=== PATIENT | male | born 1960 | race Caucasian/White ===

== ENCOUNTER → 2016-08-25 | Outpatient (CLI) | payer OTHER ==
[~2016-08-25] MED LIST: ALBUTEROL17 GM INH; CHANTIX1 MG PO; CLARITIN10 M4 PO; FLOMAX0.4 M1 PO; FLOVENT HFA12 G1 INH; LEDIPASVIR PO; MONTELUKAST SOD10 MG PO; SOFOSBUVIR PO; STIOLTO RESPIMAT4 GM INH; TESSALON PERLE100 M1 PO; VITAMIN D-32000 UNI2 PO
[2016-08-25 10:10] LABS: HEMATOCRIT 46.2 % (38.0-50.0); HEMOGLOBIN 15.4 gm/dL (13.0-16.0); MEAN CELL VOLUME 83.7 FL (83-96); MEAN CORPUSCULAR HEMOGLOBIN 27.9 PG (28-34); MEAN CORPUSCULAR HGB CONC 33.3 g/dL (30-36); MEAN PLATELET VOLUME 9.5 FL (6.5-11.5); RED BLOOD COUNT 5.52 X10e (3.90-5.60); RED CELL DISTRIBUTION WIDTH 14.2 % (11.0-15.5)
[2016-08-25 11:10] LABS: ALBUMIN SERUM 3.8 g/dL (3.5-5.0); BILIRUBIN,TOTAL 0.8 mg/dL (0.2-2.0); BUN/CREATININE RATIO 33.33; CREATININE SERUM 0.9 mg/dL (0.6-1.4); GLOM FILT RATE Estimated 95.8 mL/min (>60); POTASSIUM 4.6 mmol/L (3.5-5.1); PROTEIN TOTAL SERUM 6.6 g/dL (6.0-8.3)
== END | disposition home or self-care (01) ==
LOC: CLAB 09:38
PROVIDERS: Nurse Practitioner Family
DX: B19.20 Unspecified viral hepatitis C without hepatic coma (principal)
CPT/HCPCS: 36415; 80053; 85027; 87522

== ENCOUNTER → 2016-08-29 | Day surgery (SDC) | payer OTHER ==
--- NOTE | ~2016-08-29 | OR ---
Unit #: [id number] #: [id number] Patient: DESTINEY MORALES [id number] [address] [place], [place] [address] [id number] MR#: [id number] NAME: DESTINEY MORALES ROOM: Date of Procedure: 08/29/2016 Admission Date: 08/29/2016 Surgeon: Lazaro Brownlee M.D. : 1960 Attending Physician: Lazaro Brownlee M.D. OPERATIVE REPORT PROCEDURE PERFORMED Colonoscopy with snare polypectomy. INDICATIONS FOR PROCEDURE Average risk for colorectal cancer. MEDICATIONS Monitored anesthesia. POSTOPERATIVE FINDINGS 1. Multiple polyps, 2 in transverse colon, 10 in sigmoid colon. They were all 4 to 6 mm small, was snared and sent for histopathology. 2. Prep was good. PLAN Repeat colonoscopy in 3 years. Follow up on the pathology report. DESCRIPTION OF PROCEDURE The patient was explained of the procedure, risks, and benefits along with risks and benefits of anesthesia. He was brought to the endoscopy room. Propofol anesthesia was given. Rectal exam was done, which was normal. Colonoscope was lubricated, passed up the rectum, advanced under direct vision all the way to cecum. Cecum was identified by ileocecal valve and appendiceal orifice. Multiple polyps were seen as described. I retroflexed in the rectum, small hemorrhoids seen. Scope was gently pulled out. He tolerated it well. Dictated by... Opal Segura/raul TD: 08/30/2016 03:23 JOB #: [id number] CC: Mahad Reid Aprn Unit #: [id number] #: [id number] Patient: DESTINEY MORALES OPERATIVE REPORT Page 1 of 1 X Lazaro Brownlee MD X PROCEDURE OPERATIVE NOTE
== END | disposition home or self-care (01) ==
LOC: COPS 09:39
DX: Z12.11 Encounter for screening for malignant neoplasm of colon (principal); D12.3 Benign neoplasm of transverse colon; D12.5 Benign neoplasm of sigmoid colon; K64.9 Unspecified hemorrhoids; J44.9 Chronic obstructive pulmonary disease, unspecified; F17.210 Nicotine dependence, cigarettes, uncomplicated; Z87.442 Personal history of urinary calculi; Z79.899 Other long term (current) drug therapy
CPT/HCPCS: 88305